=== PATIENT | female | born 1965 | race Caucasian/White ===

== ENCOUNTER 2020-04-13 13:46 | Inpatient (IN) | payer MEDICAID, OTHER ==
[~2020-04-13] VITALS: Ht 165.1 cm; Wt 90.4 kg
[2020-04-13] MEDS ORDERED: SODIUM CHLORIDE 0.9% 500 ML IVB ONE (14:06)
[2020-04-13] MEDS ORDERED: MORPHINE SULFATE 4 MG/ML SYR/VIAL IV ONE (14:15)
[2020-04-13] MEDS ORDERED: ONDANSETRON HCL 4 MG/2 ML VIAL IV ONE (14:15)
[2020-04-13 14:56] LABS: Basophils # (auto) 0 10 ^3/uL (0-0.2); Basophils % (auto) 0.2 % (0.0-2.0); Eosinophils # (auto) 0.1 10 ^3/uL (0-0.8); Eosinophils % (auto) 1.1 % (0.0-7.0); Hematocrit 44.3 % (36.0-46.0); Hemoglobin 14.6 g/dL (12.2-16.2); Lymphocytes # (auto) 1.9 10 ^3/uL (0.4-5.4); Lymphocytes % (auto) 13.9 % (10.0-50.0); Mean Corpuscular Hemoglobin 28.1 pg (28.0-32.0); Mean Corpuscular Volume 85.1 fL (80.0-100.0); Monocytes % (auto) 7.1 % (0.0-12.0); Neutrophils # (auto) 10.5 10 ^3/uL (1.6-8.6); Neutrophils % (auto) 77.7 % (37.0-80.0); Platelet Count (auto) 343 10^3/uL (140-450); Red Blood Cells 5.21 10^6/uL (4.0-5.20); Red Cell Distribution Width 13.7 % (11.8-14.3); White Blood Cell 13.6 10^3/uL (4.4-10.8)
[2020-04-13 15:14] LABS: Albumin 3.7 g/dL (3.4-5.0); Potassium 4.1 mmol/L (3.5-5.1)
[2020-04-13 15:17] LABS: Bilirubin, Total 0.4 mg/dL (0.2-1.0); Total Protein 8.2 g/dL (6.4-8.2)
[2020-04-13] MEDS ORDERED: metroNIDAZOLE 500MG/100ML 100 ML IV ONE (15:45)
[2020-04-13] MEDS ORDERED: MORPHINE SULF INJ 2 MG/ML SYRINGE 1ML IV PRN ×3 (16:00→17:45)
[2020-04-13] MEDS ORDERED: NITROGLYCERIN 0.4 MG SL TAB SL PRN ×2 (16:00→17:45)
[2020-04-13 16:03] LABS: Urine Bacteria NONE SEEN /hpf (None Seen); Urine Blood Negative /uL (Negative); Urine Mucus FEW (None Seen); Urine Specific Gravity 1.019 (1.001-1.035); Urine WBC 2 /hpf (0 - 5)
[2020-04-13 17:00] VITALS: BP 130/58
[2020-04-13] MEDS ORDERED: IPRATROPIUM BROM 0.5 MG/2.5ML INH SOL NEB PRN (17:30)
[2020-04-13] MEDS ORDERED: ALBUTEROL SULF 2.5 MG/0.5ML(0.5%) NEB SOLN NEB PRN (17:30)
[2020-04-13] MEDS ORDERED: ALBUTEROL SULF 2.5 MG/0.5ML(0.5%) NEB SOLN NEB ONE (17:30)
[2020-04-13] MEDS ORDERED: IPRATROPIUM BROM 0.5 MG/2.5ML INH SOL NEB ONE (17:30)
[2020-04-13] MEDS: INSULIN LISPRO (HUMAN) 100 UNITS/ML ML SC SCH (17:36)
[2020-04-13] MEDS ORDERED: HYDROcodone-ACET 5/325MG TAB PO PRN (17:45)
[2020-04-13] MEDS ORDERED: ALUM & MAG HYDROX-SIMETH LIQ(MAALOX) 30 ML PO PRN (17:45)
[2020-04-13] MEDS ORDERED: LORazepam 0.5 MG TAB PO PRN (17:45)
[2020-04-13] MEDS ORDERED: ONDANSETRON HCL 4 MG/2 ML VIAL IV PRN (17:45)
[2020-04-13] MEDS ORDERED: DOCUSATE SOD 100 MG CAP PO PRN (17:45)
[2020-04-13] MEDS: SODIUM CHLORIDE 0.9% 1,000 ML IV SCH (18:03)
[2020-04-13 18:14] LABS: Cholesterol 199 mg/dL (< 200)
[2020-04-13 18:17] LABS: HDL Cholesterol 56 mg/dL (40-59); LDL Cholesterol 121 mg/dL (< 100); Triglycerides 158 mg/dL (< 150)
[2020-04-13] MEDS: CIPROFLOXACIN 400MG/200ML 200 ML IV SCH (18:18)
[2020-04-13 18:32] LABS: Alcohol, Urine < 3.0 mg/dL (0-5); Amphetamine Screen, Urine NEGATIVE (NEGATIVE); Barbiturate Scree,Urine NEGATIVE (NEGATIVE); Benzodiazephine Screen, Urine NEGATIVE (NEGATIVE); Cannabinoid Screen, Urine NEGATIVE (NEGATIVE); Cocaine Screen, Urine NEGATIVE (NEGATIVE); Opiate Scree,Urine NEGATIVE (NEGATIVE); Phencyclidine Screen, Urine NEGATIVE (NEGATIVE)
--- NOTE | 2020-04-13 19:35 | NUR ---
Opening Shift Note Assumed care of patient, awake and alert and oriented x4. No S/S of distress/SOB or pain. Instructed on POC and to call for assist PRN, will continue to monitor for changes Q1hr and PRN. Safety precautions maintained bed is in lowest position and locked, bed rails 2x. Call light and bedside table are within reach.
[2020-04-13 22:00] VITALS: BP 139/64
[2020-04-13] MEDS: ATORVASTATIN 20 MG TAB PO SCH (22:00)
--- NOTE | 2020-04-13 22:34 | NUR ---
Call back from hospitalist received New orders received. Orders inputed. Will continue to monitor patient Q1 and PRN.
[2020-04-13] MEDS: metroNIDAZOLE 500MG/100ML 100 ML IV SCH (22:39)
[2020-04-13] MEDS: INSULIN LANTUS (GLARGINE) 1 /0.01ml (100units/ml) SC SCH (22:44)
[2020-04-13] MEDS ORDERED: DEXTROSE (50%) 50ML SYRG IV PRN (22:45)
[2020-04-14] MEDS: ACCU-CHEK COMFORT CURVE STRIP VI SCH ×5 (00:09→22:13)
[2020-04-14] MEDS: InsuLIN REG 1unit/0.01ml Soln (100units/ml) SC SCH ×4 (00:16→18:03)
[2020-04-14] MEDS: CIPROFLOXACIN 400MG/200ML 200 ML IV SCH (00:17)
[2020-04-14] MEDS: SODIUM CHLORIDE 0.9% 1,000 ML IV SCH ×3 (01:32→22:11)
[2020-04-14 04:58] VITALS: BP 132/64
[2020-04-14 06:19] LABS: Basophils # (auto) 0.1 10 ^3/uL (0-0.2); Basophils % (auto) 0.7 % (0.0-2.0); Eosinophils # (auto) 0.1 10 ^3/uL (0-0.8); Eosinophils % (auto) 1.8 % (0.0-7.0); Hematocrit 38.6 % (36.0-46.0); Lymphocytes # (auto) 2.1 10 ^3/uL (0.4-5.4); Lymphocytes % (auto) 27.3 % (10.0-50.0); Mean Corpuscular Hemoglobin 28.8 pg (28.0-32.0); Mean Corpuscular Hgb Conc. 33.6 g/dL (32.0-36.0); Mean Corpuscular Volume 85.7 fL (80.0-100.0); Monocytes # (auto) 0.5 10 ^3/uL (0-1.3); Monocytes % (auto) 6.2 % (0.0-12.0); Platelet Count (auto) 301 10^3/uL (140-450); Red Cell Distribution Width 13.6 % (11.8-14.3); White Blood Cell 7.8 10^3/uL (4.4-10.8)
[2020-04-14 06:20] LABS: Potassium 3.5 mmol/L (3.5-5.1)
[2020-04-14 06:22] LABS: INR 1.12 (0.9-1.15); Partial Thromboplastin Time 30.1 sec (23.64-32.05)
[2020-04-14 06:31] LABS: Albumin 2.9 g/dL (3.4-5.0); BUN/Creatinine Ratio 9.2; Bilirubin, Total 0.5 mg/dL (0.2-1.0); Magnesium 2.1 mg/dL (1.6-2.6); Phosphorus 2.7 mg/dL (2.5-4.90); Total Protein 6.9 g/dL (6.4-8.2)
[2020-04-14] MEDS: metroNIDAZOLE 500MG/100ML 100 ML IV SCH ×3 (06:46→22:13)
[2020-04-14] MEDS: INSULIN LISPRO (HUMAN) 100 UNITS/ML ML SC SCH (06:50)
--- NOTE | 2020-04-14 07:30 | NUR ---
Opening Shift Note Assumed care of patient, awake and alert. No S/S of distress/SOB or pain. Instructed on POC and to call for assist PRN, will continue to monitor for changes Q1hr and PRN.
--- NOTE | 2020-04-14 07:45 | NUR ---
End of Shift Note Endorsed care to Satish LEVY. At this time patient has no s/s of distress or SOB, no complaints at this time, patient responsive to name and touch.
[2020-04-14 08:00] VITALS: BP 139/68
[2020-04-14 09:00] VITALS: BP 139/68
[2020-04-14] MEDS ORDERED: DEXTROSE (50%) 50ML SYRG IV PRN (09:15)
[2020-04-14] MEDS: ENOXAPARIN SOD 40 MG/0.4 ML SYRINGE SC SCH (10:00)
[2020-04-14] MEDS ORDERED: CYCLOBENZAPRINE HCL 10 MG TAB PO SCH ×2 (10:00→14:45)
[2020-04-14] MEDS: LISINOPRIL 10 MG TAB PO SCH (10:00)
[2020-04-14] MEDS: levoFLOXacin 500MG 100 ML IV SCH (10:56)
[2020-04-14 13:00] VITALS: BP 144/74
[2020-04-14 17:00] VITALS: BP 150/78
[2020-04-14 21:00] VITALS: BP 126/56
[2020-04-14] MEDS ORDERED: InsuLIN REG 1unit/0.01ml Soln (100units/ml) SC SCH (22:00)
[2020-04-14] MEDS: ATORVASTATIN 20 MG TAB PO SCH (22:00)
[2020-04-14] MEDS: INSULIN LANTUS (GLARGINE) 1 /0.01ml (100units/ml) SC SCH (22:21)
[2020-04-15 05:00] VITALS: BP 148/74
[2020-04-15 05:36] LABS: Basophils # (auto) 0.1 10 ^3/uL (0-0.2); Basophils % (auto) 0.9 % (0.0-2.0); Eosinophils # (auto) 0.3 10 ^3/uL (0-0.8); Eosinophils % (auto) 4.6 % (0.0-7.0); Hemoglobin 13.8 g/dL (12.2-16.2); Lymphocytes % (auto) 27.1 % (10.0-50.0); Mean Corpuscular Hgb Conc. 33.7 g/dL (32.0-36.0); Mean Corpuscular Volume 85.9 fL (80.0-100.0); Monocytes # (auto) 0.4 10 ^3/uL (0-1.3); Monocytes % (auto) 6.2 % (0.0-12.0); Neutrophils # (auto) 4.5 10 ^3/uL (1.6-8.6); Neutrophils % (auto) 61.2 % (37.0-80.0); Nucleated Red Blood Cells % 0.1 %; Platelet Count (auto) 324 10^3/uL (140-450); Red Blood Cells 4.78 10^6/uL (4.0-5.20); Red Cell Distribution Width 13.7 % (11.8-14.3); White Blood Cell 7.3 10^3/uL (4.4-10.8)
[2020-04-15 06:00] LABS: Potassium 3.4 mmol/L (3.5-5.1)
[2020-04-15 06:13] LABS: Albumin 3.1 g/dL (3.4-5.0); BUN/Creatinine Ratio 8.5; Bilirubin, Total 0.4 mg/dL (0.2-1.0); Calcium 8.4 mg/dL (8.5-10.1); Total Protein 7.2 g/dL (6.4-8.2)
[2020-04-15] MEDS: ACCU-CHEK COMFORT CURVE STRIP VI SCH ×2 (06:15→12:36)
[2020-04-15] MEDS: metroNIDAZOLE 500MG/100ML 100 ML IV SCH ×2 (06:15→14:00)
[2020-04-15] MEDS: InsuLIN REG 1unit/0.01ml Soln (100units/ml) SC SCH ×2 (06:22→11:30)
--- NOTE | 2020-04-15 07:30 | NUR ---
End of Shift Note Endorsed care to dayshift RN. At this time patient has no s/s of distress or SOB, no complaints. Patient responsive to name and touch.
[2020-04-15 08:00] VITALS: BP 153/77
[2020-04-15] MEDS: SODIUM CHLORIDE 0.9% 1,000 ML IV SCH (08:00)
[2020-04-15 09:00] VITALS: BP 153/77
[2020-04-15] MEDS: levoFLOXacin 500MG 100 ML IV SCH (10:00)
[2020-04-15] MEDS: ENOXAPARIN SOD 40 MG/0.4 ML SYRINGE SC SCH (10:00)
[2020-04-15] MEDS: LISINOPRIL 10 MG TAB PO SCH (10:00)
[2020-04-15 13:00] VITALS: BP 140/73
[2020-04-15] MEDS ORDERED: POTASSIUM CHL 20 Meq TABLET PO ONE (13:45)
--- NOTE | 2020-04-15 14:40 | NUR ---
Discharge instructions given as ordered. Encourage to follow up with PMD as instructed. All questions and concerns addressed. Patient verbalized understanding. IV removed with catheter intact, pressure dressing applied. Telemetry unit returned to ICU. Patient ambulated to vehicle with all personal belongings, accompanied by staff. No distress noted at time of departure.
[2020-04-15] MEDS ORDERED: CYCLOBENZAPRINE HCL 10 MG TAB PO SCH (18:00)
== END 2020-04-15 14:40 | disposition home or self-care (01) | DRG 244 ==
LOC: ER 13:46 → TELE-WESTW 13:47
PROVIDERS: ADMIT Hospitalist; ATTEND Internal Medicine
DX: K57.32 Diverticulitis of large intestine without perforation or abscess without bleeding (principal); E11.65 Type 2 diabetes mellitus with hyperglycemia; K75.81 Nonalcoholic steatohepatitis (NASH); E66.9 Obesity, unspecified; G89.29 Other chronic pain; F17.210 Nicotine dependence, cigarettes, uncomplicated; I10 Essential (primary) hypertension; M54.5 Low back pain; J44.9 Chronic obstructive pulmonary disease, unspecified; E44.1 Mild protein-calorie malnutrition; Z68.33 Body mass index [BMI] 33.0-33.9, adult; Z90.721 Acquired absence of ovaries, unilateral; Z98.84 Bariatric surgery status; Z90.49 Acquired absence of other specified parts of digestive tract; Z88.6 Allergy status to analgesic agent; Z88.1 Allergy status to other antibiotic agents; Z88.8 Allergy status to other drugs, medicaments and biological substances; Z71.6 Tobacco abuse counseling
CPT/HCPCS: 36415; 74176; 80053; 80061; 80307; 81001; 82962; 83036; 83690; 83735; 84100; 85025; 85610; 85730; G0378; J1815; J1956; J3490

== ENCOUNTER → 2024-01-06 | Outpatient (CLI) | payer MEDICAID ==
[2024-01-06 16:31] LABS: Basophils # (auto) 0.1 10 ^3/uL (0-0.2); Basophils % (auto) 1.1 % (0.0-2.0); Eosinophils # (auto) 0.3 10 ^3/uL (0-0.8); Eosinophils % (auto) 3.9 % (0.0-7.0); Hemoglobin 15.1 g/dL (12.2-16.2); Lymphocytes # (auto) 3.5 10 ^3/uL (0.4-5.4); Lymphocytes % (auto) 41.6 % (10.0-50.0); Mean Corpuscular Hemoglobin 28.4 pg (28.0-32.0); Mean Corpuscular Hgb Conc. 33.6 g/dL (32.0-36.0); Mean Corpuscular Volume 84.4 fL (80.0-100.0); Monocytes # (auto) 0.6 10 ^3/uL (0-1.3); Monocytes % (auto) 6.7 % (0.0-12.0); Neutrophils # (auto) 3.9 10 ^3/uL (1.6-8.6); Neutrophils % (auto) 46.7 % (37.0-80.0); Nucleated Red Blood Cells % 0.2 %; Red Blood Cells 5.34 10^6/uL (4.0-5.20); White Blood Cell 8.4 10^3/uL (4.4-10.8)
[2024-01-06 16:41] LABS: Urine Bacteria NONE SEEN /hpf (None Seen); Urine Blood Negative /uL (Negative); Urine Clarity Clear (Clear); Urine Color Yellow (Yellow); Urine Hyaline Cast FEW /lpf (0 - 2); Urine Mucus FEW (None Seen); Urine Protein, UAD TRACE (Negative); Urine Urobilinogen Normal (Negative); Urine WBC 3 /hpf (0 - 5); Urine pH 5.5 (5.0-8.0)
[2024-01-06 16:51] LABS: Alanine Aminotransferase 25 U/L (7-40); Alkaline Phosphatase 120 U/L (46-116); Anion Gap 6 (5-15); Aspartate Aminotransferase 23 U/L (13-40); BUN/Creatinine Ratio 12.1 (10.0-20.0); Blood Urea Nitrogen 11 mg/dL (9-23); Calcium 10.2 mg/dL (8.5-10.1); Carbon Dioxide 28 mmol/L (20-30); Chloride 105 mmol/L (98-107); Glucose 169 mg/dL (74-106); LDL Cholesterol 118 mg/dL (< 100); Potassium 4.1 mmol/L (3.5-5.1); Sodium 139 mmol/L (136-145); Triglycerides 154 mg/dL (< 150)
[2024-01-06 16:52] LABS: Albumin 4.4 g/dL (3.2-4.8); Bilirubin, Total 0.6 mg/dL (0.2-1.0); Cholesterol 187 mg/dL (< 200); HDL Cholesterol 57 mg/dL (40-59); Total Protein 7.3 g/dL (5.7-8.2)
[2024-01-06 16:55] LABS: Folate (Folic Acid) > 24.00 ng/mL (>5.38)
== END | disposition home or self-care (01) ==
LOC: LAB 15:49
PROVIDERS: ATTEND Internal Medicine
DX: E61.2 Magnesium deficiency (principal); R78.89 Finding of other specified substances, not normally found in blood; E78.9 Disorder of lipoprotein metabolism, unspecified; R68.89 Other general symptoms and signs; E79.0 Hyperuricemia without signs of inflammatory arthritis and tophaceous disease; R82.991 Hypocitraturia; R82.79 Other abnormal findings on microbiological examination of urine; E85.9 Amyloidosis, unspecified; R82.90 Unspecified abnormal findings in urine; D51.9 Vitamin B12 deficiency anemia, unspecified
CPT/HCPCS: 36415; 80053; 80061; 81001; 82306; 82607; 82746; 83036; 84443; 84550; 85025; 87086

== ENCOUNTER → 2024-04-27 | Outpatient (CLI) | payer MEDICAID ==
[2024-04-27 11:47] LABS: Urine Bacteria None Seen /hpf (None Seen)
[2024-04-27 12:03] LABS: Urine Blood Negative /uL (Negative); Urine Clarity Clear (Clear); Urine Color Dark-Yellow (Yellow); Urine Mucus FEW (None Seen); Urine Protein, UAD Negative (Negative); Urine Specific Gravity 1.029 (1.001-1.035); Urine Urobilinogen Normal (Negative); Urine WBC 3 /hpf (0 - 5); Urine pH 5.5 (5.0-9.0)
[2024-04-27 12:59] LABS: Alanine Aminotransferase 32 U/L (7-40); Albumin 4.4 g/dL (3.2-4.8); Alkaline Phosphatase 117 U/L (46-116); Anion Gap 7 (5-15); Aspartate Aminotransferase 21 U/L (13-40); BUN/Creatinine Ratio 16.5 (10.0-20.0); Bilirubin, Total 0.6 mg/dL (0.2-1.0); Blood Urea Nitrogen 13 mg/dL (9-23); Calcium 10.1 mg/dL (8.5-10.1); Carbon Dioxide 27 mmol/L (20-30); Chloride 103 mmol/L (98-107); Cholesterol 204 mg/dL (< 200); Glucose 196 mg/dL (74-106); HDL Cholesterol 61 mg/dL (40-59); LDL Cholesterol 135 mg/dL (< 100); Magnesium 2.1 mg/dL (1.6-2.6); Potassium 4.3 mmol/L (3.5-5.1); Sodium 137 mmol/L (136-145); Total Protein 7.6 g/dL (5.7-8.2); Triglycerides 130 mg/dL (< 150)
[2024-04-27 13:06] LABS: Folate (Folic Acid) > 24.00 ng/mL (>5.38)
[2024-04-27 13:09] LABS: Uric Acid 3.9 mg/dL (3.1-7.8)
== END | disposition home or self-care (01) ==
LOC: LAB 11:34
PROVIDERS: ATTEND Internal Medicine
DX: E11.69 Type 2 diabetes mellitus with other specified complication (principal); E03.9 Hypothyroidism, unspecified; R07.82 Intercostal pain; K57.92 Diverticulitis of intestine, part unspecified, without perforation or abscess without bleeding; J45.30 Mild persistent asthma, uncomplicated; I16.9 Hypertensive crisis, unspecified
CPT/HCPCS: 36415; 80053; 80061; 81001; 82306; 82607; 82746; 83036; 83735; 84443; 84550; 87086